=== PATIENT | female | born 1995 | race Caucasian/White ===

== ENCOUNTER 2018-08-07 15:12 | Emergency (ER) | payer OTHER ==
[2018-08-07 15:50] VITALS: BP 120/93; PULSE 60; BMI 18.8
--- NOTE | 2018-08-07 16:02 | PDOC ---
History of Present Illness - General Chief Complaint: Syncope/Near Syncope Stated Complaint: SYNCOPE/NEAR SYNCOPE Time Seen by Provider: 08/07/18 15:32 History Source: Patient - History of Present Illness Initial Comments: 08/07/18 16:00 22F w/ pmhx of panhypopituitarism and hypothyroidism presents in the ED after a syncopal episode. Pt states she was about to open a window, when she suddenly syncopized in her parent's home. She states her mother witnessed the fall and was able to catch her from falling to the ground. Pt admits to LOC for 1 min. Of note, pt reports she has had a history of multiple syncopal episodes over the past month, 3 times. 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 2nd syncopal episode over the past month happened after quickly getting out of bed, +LOC. Today was the 3rd syncopal episode witnessed by her mother. Prior to each syncopal episode, she admits to dizziness where she feel as if the room is spinning. She states that her syncopal episodes started as a teenager and has been progressively getting more frequent recently. Denies fever /chills, shortness of breath, vision changes, chest pain, difficulty walking, problems with balance and coordination. Of note, pt has been on multiple meds for her panhypopituitarism and hypothyroidism since childhood. She admits to non-compliance with her medications and also does not follow up with a PCP. PCP: Pt does not currently have a PCP. Submersible Pilot: Dr. Lewis at [place] ([phone]) PMHx: panhypopituitarism, hypothyroidism PSHx: R ear sx (in childhood) Fhx: Mother-HTN, DM Social: Denies tobacco, alcohol, rec drug use Currently works as a college counselor. Denies recent travel Past History - Past Medical History Allergies/Adverse Reactions: Allergies Allergy/AdvReac Type Severity Reaction Status Date / Time No Known Allergies Allergy Verified 08/29/16 20:16 Home Medications: Ambulatory Orders Dexamethasone 0.5 mg PO DAILY 06/20/15 Levothyroxine [Synthroid -] 88 mcg PO DAILY 06/20/15 Nidotropin Inj 1 IM DAILY 06/20/15 Norethindrone-Ethinyl Estrad [Necon] 1 each PO DAILY 06/20/15 COPD: No CHF: No Thyroid Disease: Yes (HYPER, BALLESTEROS HYPO PITUITARYISM.) - Immunization History Immunization Up to Date: No - Suicide/Smoking/Psychosocial Hx Smoking History: Never smoked Have you smoked in the past 12 months: No Information on smoking cessation initiated: No Hx Alcohol Use: No Drug/Substance Use Hx: No Substance Use Type: None Review of Systems - Review of Systems Able to Perform ROS?: Yes Is the patient limited Dominican proficient: No Constitutional: No: Chills, Fever HEENTM: No: Blurred Vision, Recent change in vision Respiratory: No: Cough, Shortness of Breath, SOB with Exertion, SOB at Rest Cardiac (ROS): Yes: See HPI, Lightheadedness, Syncope. No: Chest Pain ABD/GI: No: Constipated, Diarrhea, Nausea, Vomiting Musculoskeletal: No: Back Pain Neurological: Yes: Dizziness. No: Headache, Numbness, Paresthesia, Unsteady Gait Endocrine: Yes: Intolerance to Cold *Physical Exam - Vital Signs Last Vital Signs Temp Pulse Resp BP Pulse Ox 60 17 120/93 99 08/07/18 15:47 08/07/18 15:47 08/07/18 15:47 08/07/18 15:47 - Physical Exam General Appearance: Yes: Appropriately Dressed HEENT: positive: EOMI, FLORENCIA, Normal Voice, Pale Conjunctivae Neck: positive: Supple Respiratory/Chest: positive: Lungs Clear, Normal Breath Sounds Cardiovascular: positive: Regular Rhythm, Regular Rate, S1, S2. negative: Murmur Vascular Pulses: Dorsalis-Pedis (R): 2+, Doralis-Pedis (L): 2+ Gastrointestinal/Abdominal: positive: Normal Bowel Sounds, Soft Extremity: positive: Normal Range of Motion. negative: Pedal Edema Integumentary: positive: Normal Color, Dry, Clammy (b/l hands and feet) Neurologic: positive: faculty research physician II-XII NML intact, Fully Oriented, Alert, Normal Mood/ Affect, Motor Strength 5/5, Responsive. negative: Facial Droop, Numbness ED Treatment Course - LABORATORY CBC & Chemistry Diagram: 08/07/18 16:54 08/07/18 16:54 Medical Decision Making - Medical Decision Making 08/07/18 16:58 22F w/ pmhx of hypopituitarism and hypothyroidism presents after a syncopal episode. -Syncopal episodes could possibly be due to arrhythmia vs. orthostasis vs. vasovagal vs. electrolyte abnormalities -Will get CBC/CMP, EKG, Mag, Phos 08/07/18 18:01 -CBC/CMP/Mag/Phos unremarkable. Low calcium noted. EKG showed NSR, no ST-T changes, or evidence of ischemic changes. -Contacted network control operators supervisor, Dr. Lewis, to make aware of case. Awaiting call back. Advised patient to make network control operators supervisor aware of symptoms. Pt has a scheduled appointment this month. -DC to home. D/w patient to follow up with PCP, gas appliance mechanic, and network control operators supervisor. Also advised to increase fluid intake. -Discussed case with pt's network control operators supervisor, Dr. Lewis. Made aware of pt's ED visit. Case discussed with Dr. Ozuna. -Ashley Perry DO - PGY1 08/07/18 18:36 *DC/Admit/Observation/Transfer Diagnosis at time of Disposition: Syncope Qualifiers: Syncope type: unspecified Qualified Code(s): R55 - Syncope and collapse - Discharge Dispostion Disposition: HOME Condition at time of disposition: Improved Decision to Admit order: No - Referrals Referrals: Nathan Storm MD [Staff Physician] - - Patient Instructions Additional Instructions: You were seen in the ED for complaints of a fainting episode. In the ED, blood work was done which was normal. An ECG (electrocardiogram) was done to assess your heart rhythm which was also normal. You were given IV fluids. Your symptoms improved. There is no acute need for hospitalization at this time. You are being discharged home. MEDICATION RECOMMENDATIONS: Please continue taking your medications regularly as prescribed. CONSULT RECOMMENDATIONS: Please follow up with your network control operators supervisor, Dr. Lewis. You have been given a referral to see a gas appliance mechanic for further evaluation. Please make an appointment to see Dr. Storm within 1 week. ADDITIONAL RECOMMENDATIONS: Please avoid over-exertion as this may cause future potential fainting episodes. If you experience persistent fainting episodes, difficulty walking, problems with balance and coordination, worsening shortness of breath or chest pain, please proceed to your nearest emergency room immediately. - Post Discharge Activity
--- NOTE | 2018-08-07 16:30 | PDOC ---
Attending Attestation - HPI HPI: 08/07/18 17:46 The patient is a 22 year old female, with a significant PMH of panhypopituitarism and hypothyroidism, who presents to the emergency department for evaluation s/p syncopal episode. The patient states she was opening a window at home when she experienced the syncopal episode. The patients mother reports she witnessed the syncopal episode and was able to catch the patient from falling. The patient also endorses 2-3 additional syncopal episodes over the past month. The patient denies chest pain, shortness of breath, headache and dizziness. Denies fever, chills, nausea, vomit, diarrhea and constipation. Denies dysuria, frequency, urgency and hematuria. Allergies: NKA Documentation prepared by Kevin Doss, acting as electromedical equipment repairer for Abundio Ozuna MD. <Kevin Doss - Last Filed: 08/07/18 17:46> - Resident Resident Name: Ashley Perry - ED Attending Attestation I have performed the following: I have examined & evaluated the patient, The case was reviewed & discussed with the resident, I agree w/resident's findings & plan, Exceptions are as noted - Physicial Exam PE: 08/07/18 17:36 Patient is awake and alert, well-nourished, pale appearing; Normocephalic; atraumatic; minor abrasion is noted to the middle of forehead PERRLA, EOMI Conjunctiva are pink mm-dry CTA Neck is supple RRR Abdomen soft, nontender, nondistended No lower extremity edema No focal neurological deficits - Medical Decision Making 08/07/18 17:37 Patient is a 22-year-old female with history of hypopituitarism who presents with recurrent syncopal episodes over the past several weeks without associated seizure-like activity. Differential diagnoses includes cardiac dysrhythmia versus orthostasis versus PE. Patient is negative for PE by perk rule. EKG shows no evidence of acute ischemia; MD/QRS/QTC are within normal limit. There is no indication for head CT at this time as patient is nonfocal neurologically without any associated symptomatology. We'll obtain CBC/CMP to evaluate for electrolyte abnormalities and anemia. Will hydrate. Will reassess. 08/07/18 18:10 On further questioning, patient reports sparse compliance with her medication regimen. Patient reports that she's been amenorrheic for the past 8 months and has recently switched to a vegan diet. Patient also reports decreased caloric intake while attempting to lose weight. 08/07/18 18:27 Patient resting comfortably, in no distress. CBC shows H&H of 10 and 30. CMP reveals mild hypocalcemia only. There is no indication for inpatient evaluation at this time. Will discharge with endocrinology and cardiac follow-up. Advised patient to take medications as prescribed and return immediately for recurrent symptoms. <Abundio Ozuna - Last Filed: 08/07/18 18:28>
[2018-08-07] MEDS ORDERED: SODIUM CHLORIDE 1,000 ML IV STA (16:33)
[2018-08-07 17:12] LABS: BASO % 0.7 % (0-2.0); EOS % 1.9 % (0-4.5); HEMATOCRIT 30.6 % (32.4-45.2); HEMOGLOBIN 10.5 GM/dL (10.7-15.3); LYMPH % 54.3 % (8-40); MCH 31.9 pg (25.7-33.7); MCHC 34.4 g/dl (32.0-36.0); MEAN CELL VOLUME 92.8 fl (80-96); MEAN PLT VOLUME 8.1 fl (7.5-11.1); NEUT % 37.1 % (42.8-82.8); PLATELET COUNT 195 K/MM3 (134-434); RDW 13.6 % (11.6-15.6); WHITE BLOOD COUNT 6.2 K/mm3 (4.0-10.0)
[2018-08-07 17:45] LABS: ALBUMIN 3.4 g/dl (3.4-5.0); ALK PHOS 52 U/L (45-117); ANION GAP 6 MMOL/L (8-16); BILIRUBIN,TOTAL 0.2 mg/dL (0.2-1); BLOOD UREA NITROGEN 18 mg/dL (7-18); CALCIUM 7.5 mg/dL (8.5-10.1); CHLORIDE 110 mmol/L (98-107); CO2 27 mmol/L (21-32); CREATININE 1.1 mg/dL (0.55-1.3); GLUCOSE,RANDOM 77 mg/dL (74-106); PHOSPHOROUS 3.1 mg/dL (2.5-4.9); POTASSIUM 3.7 mmol/L (3.5-5.1); SGOT/AST 13 U/L (15-37); SGPT/ALT 14 U/L (13-61); SODIUM 142 mmol/L (136-145); TOT PROT 5.9 g/dl (6.4-8.2)
--- NOTE | 2018-08-08 19:01 | EKG ---
Test Reason : Blood Pressure : / mmHG Vent. Rate : 059 BPM Atrial Rate : 059 BPM P-R Int : 190 ms QRS Dur : 096 ms QT Int : 448 ms P-R-T Axes : 067 080 049 degrees QTc Int : 443 ms SINUS BRADYCARDIA OTHERWISE NORMAL ECG WHEN COMPARED WITH ECG OF 20-JUN-2015 11:50, NO SIGNIFICANT CHANGE WAS FOUND Confirmed by GREY GUADALUPE MD ([id number]) on 08/08/2018 7:01:17 PM Referred By: Confirmed By:GREY GUADALUPE MD
== END 2018-08-07 18:43 | disposition home or self-care (01) ==
LOC: JER 15:12
PROC: 3E0337Z Introduction of Electrolytic and Water Balance Substance into Peripheral Vein, Percutaneous Approach (ICD-10-PCS; principal; 2018-08-07)
DX: R55 Syncope and collapse (principal); E03.9 Hypothyroidism, unspecified; E23.0 Hypopituitarism; Z91.14 Patient's other noncompliance with medication regimen
CPT/HCPCS: 36415; 80053; 83735; 84100; 84443; 84703; 85025; 93005; 93010; 99282-25; J7030

== ENCOUNTER 2018-09-06 15:29 | Emergency (ER) | payer OTHER ==
--- NOTE | 2018-09-06 15:48 | PDOC ---
Rapid Medical Evaluation Time Seen by Provider: 09/06/18 15:46 Medical Evaluation: Allergies Allergy/AdvReac Type Severity Reaction Status Date / Time No Known Allergies Allergy Verified 08/29/16 20:16 09/06/18 15:46 I have performed a brief in-person evaluation of this patient. The patient presents with a chief complaint of:Here for wound check for possible infxn, s/p lac repair while in [place] 4 days ago. C/o increased pain and possible redness. No f/c. Currently on abx Pertinent physical exam findings:Stable, dressing in place to R knee, will defer rest of exam to FT provider I have ordered the following:nothing The patient will proceed to the ED for further evaluation Discharge Disposition - Diagnosis Visit for wound check - Referrals - Patient Instructions - Post Discharge Activity
[2018-09-06 15:50] VITALS: BP 101/62; PULSE 78; TEMP 98.6; BMI 19.6
--- NOTE | 2018-09-06 16:20 | PDOC ---
History of Present Illness - General Chief Complaint: Revisit,Wound Recheck Stated Complaint: WOUND INFECTION Time Seen by Provider: 09/06/18 15:46 History Source: Patient Exam Limitations: No Limitations - History of Present Illness Initial Comments: 09/06/18 16:14 22 yr female s/p trip and fall 4 days ago sustained laceration to the knee had sutures placed in [place]. Pt on clindamycin . pt denies fever or chills is here for wound check. Past History - Past Medical History Allergies/Adverse Reactions: Allergies Allergy/AdvReac Type Severity Reaction Status Date / Time No Known Allergies Allergy Verified 09/06/18 15:55 Home Medications: Ambulatory Orders Dexamethasone 0.5 mg PO DAILY 06/20/15 Levothyroxine [Synthroid -] 88 mcg PO DAILY 06/20/15 Nidotropin Inj 1 unit IM DAILY 06/20/15 Norethindrone-Ethinyl Estrad [Necon] 1 each PO DAILY 06/20/15 COPD: No CHF: No Thyroid Disease: Yes (HYPER, BALLESTEROS HYPO PITUITARYISM.) - Immunization History Immunization Up to Date: No - Suicide/Smoking/Psychosocial Hx Smoking History: Never smoked Have you smoked in the past 12 months: No Information on smoking cessation initiated: No Hx Alcohol Use: No Drug/Substance Use Hx: No Substance Use Type: None Review of Systems - Review of Systems Able to Perform ROS?: Yes Is the patient limited Yemeni proficient: No Constitutional: No: Symptoms Reported HEENTM: No: Symptoms Reported Respiratory: No: Symptoms reported Cardiac (ROS): No: Symptoms Reported ABD/GI: No: Symptoms Reported Musculoskeletal: Yes: Symptoms Reported Neurological: No: Symptoms reported *Physical Exam - Vital Signs Last Vital Signs Temp Pulse Resp BP Pulse Ox 98.6 F 78 18 101/62 100 09/06/18 15:47 09/06/18 15:47 09/06/18 15:47 09/06/18 15:47 09/06/18 15:47 - Physical Exam General Appearance: Yes: Nourished, Appropriately Dressed HEENT: positive: EOMI, FLORENCIA Extremity: positive: Other (right knee with echymosis, no redness no warmth, FROM of the joint, 5-6 simple interrupted sutures placed to laceration below the patella, no wheeping ) Moderate Sedation - Procedure Monitoring Vital Signs: Procedure Monitoring Vital Signs Temperature 98.6 F 12/10/18 15:47 Pulse Rate 78 09/06/18 15:47 Respiratory Rate 18 09/06/18 15:47 Blood Pressure 101/62 09/06/18 15:47 O2 Sat by Pulse Oximetry (%) 100 09/06/18 15:47 ED Treatment Course - RADIOLOGY Radiology Studies Ordered: Category Date Time Status KNEE 3 POS-RIGHT [RAD] Stat Radiology 09/06/18 16:08 Ordered Medical Decision Making - Medical Decision Making 09/06/18 16:17 cc: fell with laceration 4 days ago on day 3 clindamycin no fever no chills here for wound check no xray done in [place] tetanus is UTD will xray r/o fb r/o fracture wound is cleaned with saline bacitracin and clean wrap applied knee immobilizer placed *DC/Admit/Observation/Transfer Diagnosis at time of Disposition: Visit for wound check - Discharge Dispostion Disposition: HOME Condition at time of disposition: Good - Referrals - Patient Instructions Additional Instructions: keep clean and dry change dressing in 48hrs use the knee immobilizer while awake remove at rest and during the day at rest do not get wet you can gently spot clean to remove any dried scabbing return in 7 days for suture removal Return to ER for any fever, chills increased pain, if the area is hot and red or any other concerns - Post Discharge Activity
== END 2018-09-06 16:46 | disposition home or self-care (01) ==
LOC: JERFT 15:29
DX: Z48.01 Encounter for change or removal of surgical wound dressing (principal)
CPT/HCPCS: 73562-TC-RT-FY; 99282-25